=== PATIENT | female | born 1955 | race Caucasian/White ===

== ENCOUNTER 2020-11-24 08:40 | Outpatient (CLI) | payer MEDICARE, BC, OTHER | END 2020-11-24 08:41 | disposition home or self-care (01) | LOC: CSHCT 08:40 | PROVIDERS: ATTEND Nurse Practitioner | DX: I48.0 Paroxysmal atrial fibrillation (principal); I77.810 Thoracic aortic ectasia; N28.1 Cyst of kidney, acquired; R29.6 Repeated falls; Z01.812 Encounter for preprocedural laboratory examination | CPT/HCPCS: 71275; 80053; 82565; 85025; 85610; 85730; 86850; 86900; 86901 ==